=== PATIENT | male | born 1990 ===

== ENCOUNTER 2021-12-22 08:00 | Outpatient (CLI) | payer OTHER | END 2021-12-22 23:59 | LOC: LAB.N 08:00 | PROVIDERS: ATTEND Physician Assistant Medical | DX: J06.9 Acute upper respiratory infection, unspecified (principal); Z20.822 Contact with and (suspected) exposure to COVID-19 ==

== ENCOUNTER 2022-03-03 09:06 | Outpatient (CLI) | payer OTHER ==
[2022-03-03 09:57] VITALS: BP 120/100
--- NOTE | 2022-03-03 09:57 | SLEEP CARE CONSULTATION ---
Information from patient questionnaire entered by Ki Cabello MA. I have reviewed and concur with the information entered by Ki Cabello MA. This document represents the service I personally performed and the decisions made by me, Virgie Rodriguez ARNP. History of Present Illness Service Date and Time: 03/03/2022 0906 Reason for Visit: New patient (ONSET 02/08/2014, ) Chief Complaint: reports: Unrefreshed sleep, Snoring, Excessive daytime sleepiness Date of Onset: YEARS Usual bedtime: 1030 - 1100 PM Time it takes to fall asleep: 30 MINUTES Snores at night: Yes Observed to quit breathing while asleep: Yes Sleeps alone due to snoring: No Number of times waking at night: 2-3 Reasons for waking at night: reports: Snoring, Bathroom, Other (DREAMS) Toss, Turn, or Twitch while sleeping: Yes Recalls having dreams: No (not usually in middle of night; sometimes at sleep onset or just awakening) Usually gets out of bed at: 0645; weekends [id number] Feels refreshed in the morning: No Morning headache: No Sleepy or fatigued during the day: Yes Ever fallen asleep while driving: Yes (drowsy driving) Takes day naps: Yes (most days) Dreams during day naps: No Prior sleep studies: No Additional HPI information: I had the pleasure of seeing JOO WHITAKER today regarding the possibility of him having a sleep disorder. His current complaints are snoring, unrefreshed sleep and excessive daytime sleepiness. He states he snoring that is waking his and not feeling rested in the morning. He feels tired through the day and will fall asleep after dinner for about 30 minutes. He states there is a pressure feeling behind his eyes/forehead that "drives" him to need to sleep. His had noted him gasping while sleeping and having pauses as well. 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 Patient is and lives in . Have you smoked in the past 12 months: Yes (VAPE 3 MG) Years of smokin Alcohol use: Yes Alcohol amount and frequency: 4 X WEEKLY Caffeine use: No Caffeine amount and frequency: 1 YEARLY Family History Family history of sleep disordered breathing: Yes Family Hx Sleep Apnea: Mother: Snoring Allergies and Home Medications Known drug allergies: No Drug allergies reviewed: Yes (NKDA) Home medication list reviewed: Yes Allergy and home medication list: Medications: HCTZ/Losartan 12.5 mg/50 mg tablet, one daily Review of Systems Weight gain over past 5 years: 20 lbs Weight loss over past 5 years: has lost 10 lbs more recently Cardiovascular: reports: high blood pressure Gastrointestinal: denies: heartburn Neurological: denies: headaches, head trauma Psychiatric: denies: anxiety, depression Ear/Nose/Throat: reports: nose bleeds (angela when seasons change), wisdom teeth removed. denies: injury to nose, tonsillectomy Endocrine: reports: sluggishness Immunologic: denies: allergies to food or environment Physical Exam Vital signs obtained and entered by: GILLIAN HODGE Blood Pressure: 120/100 (RESP 16, PULSE 101, RIGHT,) Cuff size: wrist Heart Rate: 98 O2 Saturation: 97 (CLOTH MASK) Height: 5 ft 11 in Weight: 220 lb (UNIFORM AND BOOTS) Body Mass Index: 30.7 BMI Classification: Obese Neck circumference: 16 (INCH) Mouth and throat: normal Soft palate: long Hard palate: normal Uvula: normal Uvula visualization: 100% Mallampati Class I Tongue: enlarged in size with teeth holly on lateral edges Tonsils: 1+ Neck: normal w/o lymphadenopathy or thyromegaly Heart: regular rate and rhythm Lungs: clear bilaterally Impression and Plan 1. Suspected Obstructive Sleep Apnea-Hypopnea Syndrome, as suggested by a history of loud and irregular snoring, observed cessation of breath while asleep, gasping or choking in sleep, frequent awakening during the night, unrefreshed sleep, cognitive impairment, and excessive daytime sleepiness. Narrow oropharynx and obesity are common predisposing factors for obstructive sleep apnea-hypopnea syndrome. I recommend proceeding to polysomnography to confirm the diagnosis and to assess severity. If the patient has significant sleep disordered breathing, a manual CPAP titration study will also be performed to find the optimal treatment pressure. I informed the patient of what the sleep studies involve and after some discussion, obtained agreement to proceed. The pathophysiology of obstructive sleep apnea-hypopnea syndrome was discussed with the patient and health risks of cardiovascular and cerebrovascular disease if not treated. Risks of drowsy driving discussed in detail and patient advised to avoid long distance driving and to sinker puller at the first sign of drowsiness. Patient agreed to plan. * Schedule polysomnography * Avoid long distance driving or driving when feeling sleepy. * Avoid alcohol, sedative and muscle relaxant around bedtime. * Attempt to lose weight. * Review instructions provided by trained office staff on how to prepare for the sleep study. * Return for follow-up after sleep study completed. Counseling Topics: Weight loss health impact Visit Type: In Office Time Spent with Patient (minutes): 33 Provider Statement: I spent 100% of the Face to Face Visit with the patient with greater than 50% spent counseling the patient and coordination of care.
== END 2022-03-03 09:07 | disposition home or self-care (01) ==
LOC: SC 09:06
PROVIDERS: ATTEND Nurse Practitioner Family
DX: R06.83 Snoring (principal); G47.8 Other sleep disorders; R41.89 Other symptoms and signs involving cognitive functions and awareness; G47.10 Hypersomnia, unspecified; F17.200 Nicotine dependence, unspecified, uncomplicated; E66.9 Obesity, unspecified; Z68.30 Body mass index [BMI] 30.0-30.9, adult
CPT/HCPCS: 99203; 99212

== ENCOUNTER 2022-03-30 09:20 | Outpatient (CLI) | payer OTHER | END 2022-03-30 09:21 | disposition home or self-care (01) | LOC: SC 09:20 | PROVIDERS: ATTEND Nurse Practitioner Family | DX: G47.33 Obstructive sleep apnea (adult) (pediatric) (principal); R09.02 Hypoxemia | CPT/HCPCS: 95806 ==

== ENCOUNTER 2022-04-09 15:08 | Outpatient (CLI) | payer OTHER ==
[2022-04-09 15:36] VITALS: BP 134/99
--- NOTE | 2022-04-09 15:36 | SLEEP CARE CONSULTATION ---
Information from patient questionnaire entered by Ki Cabello MA. I have reviewed and concur with the information entered by Ki Cabello MA. This document represents the service I personally performed and the decisions made by , Virgie Rodriguez ARNP. History of Present Illness Service Date and Time: 04/09/2022 1508 Initial [place] Sleepiness Scale score: 14 (02/2022) Current [place] Sleepiness Scale score: 16 Additional HPI information: JOO WHITAKER returns for follow up and results of the recently performed home sleep study. I explained the pathophysiology behind obstructive sleep apnea. We then spent quite a bit of time discussing different treatment options. For mild obstructive sleep apnea, surgery and oral appliance are alternatives to nasal CPAP therapy but in moderate or severe cases, nasal CPAP is the most effective and reliable treatment. Because apnea is primarily in supine position, then positional management therapy could be effective. Methods discussed such as positioning with pillows to prevent supine sleep. I reviewed the impact of weight changes on sleep apnea and strongly recommended losing weight. After some discussion, the patient opted to go with the nasal CPAP therapy. Nasal autoCPAP set at 4-15 cmH20 will be ordered with rationale explained. A manual titration study will be ordered if unable to find optimal pressure with office adjustments. I explained how CPAP machine works and what to expect when using the machine. Using CPAP every night in order to get used to it was emphasized. Patient advised to put CPAP mask on before getting into bed so as not to fall asleep wi thout CPAP. To assist acclimation to CPAP use, it could also be used for a short time during day while reading or watching TV. The patient was instructed to call the CPAP supplier to discuss any mechanical problem that may occur. If the mask given is uncomfortable or is difficult to keep on through the night even with adjustment, contact the CPAP supplier as many will replace with another mask style if notified before 30 days. If snoring or perceives is not getting enough air or too much air from the machine, notify this office. Patient counseled not drink alcohol less than 4 hours before bedtime as it can increase snoring and apnea. Patient was cautioned about risks of drowsy driving until sleepiness symptoms resolve. Patient denies drowsy driving. Sleep Study - Results Type of Sleep Study: Home sleep study (f/u hst, 03/30/2022 [facility], pos,) Prior sleep studies: No Polysomnography/Home Sleep Study results: Physician Impression: The quality of the study is good. The length of the study is adequate (> 240 minutes). Please also see the tabulated and graphic data. 1. Obstructive Sleep Apnea-Hypopnea (ICD-10 G47.33), mild, with an AHI of 8.5/hr and ciera SaO2 of 85%. During the study, the patient had 9 apneas (9 obstructive, 0 central, 0 mixed) and 42 hypopneas. The longest episode lasted 74.0 seconds. The patient did not sleep supine during this study. 2. Hypoxemia (ICD-10 R09.02), minimal, with the lowest oxygen saturation of 85 % and 1.0 minutes with SaO2 under 90%. Baseline oxygen saturation was normal (Average oxygen saturation was 94%). Allergies and Home Medications Home medication list reviewed: Yes (no changes) Review of Systems Review of systems same as previous: Yes (no changes) Physical Exam Vital signs obtained and entered by: THAO Blood Pressure: 134/99 Cuff size: wrist (right) Heart Rate: 99 O2 Saturation: 96 Height: 5 ft 11 in Weight: 230 lb 9.6 oz Body Mass Index: 32.1 BMI Classification: Obese Impression and Plan 1. Obstructive Sleep Apnea-Hypopnea Syndrome, mild, with lowest oxygen saturation of 85%. Obviously this is the cause of the patients symptoms of unrefreshed sleep, and excessive daytime sleepiness. Positive pressure therapy could benefit hypertension and gastric reflux. As mentioned above, the patient will be started on nasal autoCPAP therapy with pressure set at 4-15 cmH2O. Compliance guidelines also reviewed. A copy of compliance guidelines will be given for reference at check out. I advised him to sleep with head elevated to reduce apneas until he is able to start CPAP. 2. Hypoxemia, minimal, with the lowest oxygen saturation of 85 % and 1.0 minutes with SaO2 under 90%. His baseline oxygen saturation was normal with an average oxygen saturation was 94%. * Nasal auto CPAP therapy, pressure at 4-15 cm H2O. * Attempt to lose weight. * Avoid alcohol consumption near bedtime. * Avoid supine sleep until using CPAP. * The patient is again cautioned about driving until sleepiness completely resolves. * Return one month after CPAP obtained. I will assess response to therapy and compliance at that time. Counseling Topics: Sleeping position, Weight loss health impact Visit Type: In Office Time Spent with Patient (minutes): 20 Provider Statement: I spent 100% of the Face to Face Visit with the patient with greater than 50% spent counseling the patient and coordination of care.
== END 2022-04-09 15:09 | disposition home or self-care (01) ==
LOC: SC 15:08
PROVIDERS: ATTEND Nurse Practitioner Family
DX: G47.33 Obstructive sleep apnea (adult) (pediatric) (principal); R09.02 Hypoxemia; E66.9 Obesity, unspecified; Z68.32 Body mass index [BMI] 32.0-32.9, adult
CPT/HCPCS: 99212; 99213

== ENCOUNTER 2022-07-02 10:34 | Outpatient (CLI) | payer OTHER ==
--- NOTE | 2022-07-02 13:05 | XRAY Report ---
PROCEDURE: Finger(s) LT INDICATIONS: OTHER SPRAIN OF LEFT THUMB TECHNIQUE: AP hand, 3 views of the first finger(s) acquired. COMPARISON: None FINDINGS: Bones: No fractures or dislocations. No suspicious bony lesions. Soft tissues: No suspicious soft tissue calcifications. IMPRESSION: Normal left thumb radiographs Reviewed by: Júnior Thompson MD on 07/02/2022 12:04 PM NISREEN Approved by: Júnior Thompson MD on 07/02/2022 12:04 PM AKALONZO Station ID: [id number]
== END 2022-07-02 10:35 | disposition home or self-care (01) ==
LOC: DI 10:34
PROVIDERS: ATTEND Physician Assistant
DX: S63.682A Other sprain of left thumb, initial encounter (principal)